=== PATIENT | female | born 1940 | race Caucasian/White ===

== ENCOUNTER 2018-02-05 07:26 | Day surgery (SDC) | payer BC ==
[2018-02-04 08:29] VITALS: BMI 41.5
--- NOTE | 2018-02-05 08:25 | HP ---
Satellite [facility] [place] - Chief Complaint Chief Complaint: right cts - Past Medical History Allergies/Adverse Reactions: Allergies Allergy/AdvReac Type Severity Reaction Status Date / Time codeine Allergy "NAUSEA,BLO Verified 02/05/18 07:47 TCHES" morphine Allergy "NASTY Verified 02/05/18 07:47 BORDERING ON VIOLENT" - Current Medications Current Medications: Home Medications Medication Instructions Recorded Aspirin Coated [Ecotrin -] 81 mg PO DAILY 02/04/18 Enalapril Maleate [Vasotec -] 10 mg PO DAILY 02/04/18 Pitavastatin Calcium [Livalo] 2 mg PO UTDICT 02/04/18 Vit A/Vit C/Vit E/Zinc/Copper 1 each PO DAILY 02/04/18 [Preservision Tablet] Satellite Physical Exam - Physical Examination Vital Signs: Vital Signs Period Temp Pulse Resp BP Sys/Pandey Pulse Ox Last 24 Hr 98.2 F 96 20 148/95 96-96 General Appearance: Well Nourished, Well Developed, Alert & Oriented x3 ENT: Clear Lung: Normal air movement Heart: Regular rate & rhythm Extremities: Other (right hand- + tinels, + phalens emg + cts) Neurological: Intact, Alert, Oriented Satellite Impression/Plan - Impression/Plan Impression: right cts Operative Procedure: right ctr Date to be Performed: 02/05/18
[2018-02-05] MEDS ORDERED: MIDAZOLAM HCL 2 MG/2 ML SINGLE DOSE VIAL ONE (09:09)
[2018-02-05] MEDS ORDERED: SODIUM CHLORIDE 0.9% P/F 10 ML VIAL IJ ONE (09:10)
[2018-02-05] MEDS ORDERED: ceFAZolin SODIUM 1 GM VIAL ONE ×2 (09:10→09:28)
[2018-02-05] MEDS ORDERED: LIDOCAINE HCL/PF 2% SDV 5ML VIAL ONE (09:10)
[2018-02-05] MEDS ORDERED: PROPOFOL 20 ML ONE (09:24)
[2018-02-05] MEDS ORDERED: ceFAZolin SODIUM 1 GM VIAL IVPB ONE (09:42)
[2018-02-05] MEDS ORDERED: BUPIVACAINE HCL/PF 0.5% (5MG/ML) 10 ML VIAL IJ ONE (09:57)
[2018-02-05] MEDS ORDERED: LIDOCAINE HCL 1%, 10 MG/ML (20ML VIAL) INF ONE (09:57)
[2018-02-05] MEDS ORDERED: oxyCODONE HCL 5 MG TABLET PO PRN ×2 (10:12)
[2018-02-05] MEDS ORDERED: ONDANSETRON 4 MG/2 ML VIAL IVPUSH PRN (10:12)
[2018-02-05] MEDS ORDERED: LACTATED RINGERS SOLUTION 1,000 ML IV SCH (10:15)
--- NOTE | 2018-02-05 10:26 | OP ---
Operative Note - Note: Operative Date: 02/05/18 Pre-Operative Diagnosis: right CTS Operation: right CTR, tenosynovectomy Post-Operative Diagnosis: Same as Pre-op Surgeon: Kiran Alcantara Anesthesiologist/MISSILE MECHANIC: Armando Olivares Anesthesia: Local, MAC Specimens Removed: tenosynovium Estimated Blood Loss (mls): 0 Drains, Volume Out (mls): 0 Blood Volume Replaced (mls): 0 Fluid Volume Replaced (mls): 500 Operative Report Dictated: Yes
[2018-02-05 11:07] VITALS: TEMP 97.7
[2018-02-05 13:00] VITALS: BP 136/65; PULSE 82
--- NOTE | 2018-02-05 14:59 | SPEC ---
DATE OF OPERATION: DATE OF DICTATION: 02/05/2018 PREOPERATIVE DIAGNOSIS: Right carpal tunnel syndrome. POSTOPERATIVE DIAGNOSIS: Right carpal tunnel syndrome. OPERATION: Right carpal tunnel release and tenosynovectomy. SURGEON: Kiran Alcantara M.D. ASSISTANTS: None. ANESTHESIA: MAC, local injection with 12 mL of 0.5% Marcaine and 1% Lidocaine mix. ANESTHESIOLOGIST: Armando Olivares, SLUSHER OPERATOR DRAINS: None. COMPLICATIONS: None. SPECIMENS: Tenosynovium, right wrist. BLOOD LOSS: None. BLOOD GIVEN: None. FLUID REPLACEMENT: 500 mL of PlasmaLyte. INDICATIONS: This patient is a 77-year-old female with preoperative diagnosis of severe recurrent bilateral carpal tunnel syndrome. After understanding the potential risks, complications, alternatives and benefits of surgery versus nonsurgical treatment, the patient elected to undergo this procedure. Specifically she understands that she may gain complete relieve of her symptoms including a continuation of her numbness. DESCRIPTION OF PROCEDURE: The patient was brought to the operating room, peripheral IV placed and intravenous sedation was given. One gram of intravenous Ancef was given. MAC anesthesia was induced. A tourniquet was applied to the right upper arm and the right upper extremity was prepped and draped in sterile fashion. The entire case was done under 3.8 loupe magnification. A marking pen was utilized to ban out a longitudinal incision in an already existing skin crease. Twenty mL of 0.5% Marcaine mixed with 1% Lidocaine was injected in and around the surgical incision. The right upper extremity was elevated, exsanguinated with an Esmarch bandage and the tourniquet inflated to 250 mmHg. A No. 15 scalpel blade was utilized to cut down through the skin. Subcutaneous hemostasis was achieved with the bipolar cautery. Dissection was done through the superficial palmar fascia. Self-retaining retractors were placed into the wound. Under direct visualization, the transverse carpal ligament was transected with a No. 15 scalpel blade, exposing the median nerve and the contents of the carpal tunnel. The distal and proximal extents of the release were completed with a Littler scissor and checked with irrigation and my small finger. They were seen to be complete. Limited dissection was done on the radial side of the median nerve and more extensive dissection was done on the ulnar side of the median nerve. The patients nerve was seen to be quite compressed by epineurium and therefore a limited epineurotomy was performed. A Ragnell retractor was used to gently retract the median nerve in a radial direction. The patient had a lot of tenosynovitis and therefore a tenosynovectomy was performed off all 9 flexor tendons. This was passed off the field as tenosynovium right wrist. The floor of the carpal tunnel was checked. There were no abnormal masses or ganglion cysts. The area was copiously irrigated and washed out and closure begun. Undyed 4-0 Vicryl was used to close the deep dermal layer. Final skin reapproximation was done with horizontal mattress 4-0 nylon sutures. The area was then washed and dried, covered with Xeroform, 4x4s, fluffs between the fingers, Webril and a 4-inch plaster roll was utilized to make a volar splint, which was then wrapped with Chayo and Coban. The tourniquet was taken down after a total tourniquet time of minutes. There were no complications during the case. The patient tolerated the procedure well and was brought to the ambulatory recovery room in stable condition. Alverto [id number]
--- NOTE | 2018-02-06 17:45 | PATH ---
Surgical Pathology Report Patient Name: YONI CANALES [facility]. Rec. #: [id number] /Age/Gender: 1940 (Age: 77) / F Account: [id number] Location: [facility] SURGICAL Taken: 02/05/2018 Received: 02/05/2018 Reported: 02/06/2018 Physicians: Kiran Alcantara M.D. Specimen(s) Received TENOSYNOVIUM Clinical History Right carpal tunnel Final Diagnosis TENOSYNOVIUM, EXCISION: TENOSYNOVIAL TISSUE WITH DEGENERATIVE CHANGE AND FIBROSIS. Electronically Signed Charmaine Escobar M.D. Gross Description Received in formalin labeled "tenosynovium," is a 1.4 x 1.4 x 0.2 cm aggregate of 2 travis-yellow portions of soft tissue, consistent with tenosynovium. The specimen is submitted in toto in one cassette. /02/05/201802/05/2018
== END 2018-02-05 12:55 | disposition home or self-care (01) ==
LOC: JASU-SURG 07:26
PROVIDERS: ATTEND Orthopaedic Surgery
PROC: 01N50ZZ Release Median Nerve, Open Approach (ICD-10-PCS; principal; 2018-02-05 09:00)
DX: G56.01 Carpal tunnel syndrome, right upper limb (principal)
CPT/HCPCS: 88304-TC; 94760